=== PATIENT | male | born 2005 | race Caucasian/White ===

== ENCOUNTER 2025-05-02 04:19 | Emergency (ER) | payer OTHER, SELFPAY ==
--- OUTSIDE RECORDS SUMMARY | 2025-04-29 16:15 | XMS_ITS | Encounter Summary ---
Author Organization [facility] Address [address] [place] [address] Care Team Providers Care Chief Substation Operator Name Role Phone Luz Maddox MD Primary Care Provider [phone] Encounter Details Date Type Department Care Team (Latest Contact Info) Description 04/29/2025 4:15 PM EDT Pre-Admission Testing [facility] [address] [facility] 3rd [place] [address] Mass of soft tissue (Primary Dx); Pre-op evaluation Anesthesia Record Procedure Summary Procedure Name Responsible Anesthesiologist Anesthesia Start Time Anesthesia Stop Time EXCISION, LESION, SOFT TISSUE, SUBFASCIAL, 5 CM OR GREATER LOWER BACK (Back) Events No events on file. Meds * Agents No agents on file. * Blood No blood administrations on file. Lines, Drains, and Airways No LDAs on file. documented in this encounter Social History Tobacco Use Types Packs/Day Years Used Date Smoking Tobacco: Never Smokeless Tobacco: Never Alcohol Use Standard Drinks/Week Comments Yes 0 (1 standard drink = 0.6 oz pur e alcohol) 2 weekly Hunger Vital Sign Answer Date Recorded Within the past 12 months, y ou worried that your food would run out before you got the money to buy more. Never true 04/09/20 25 Within the past 12 months, t he food you bought just didn't last and you didn't have money to get more. Never true 04/09/2025 [facility] Utilities Answer Date Recorded In the past 12 months has th e electric, gas, oil, or water company threatened to shut off services in your home? No 04/09/2025 Transportation Answer Date Recorded In the past 12 months, has l ack of reliable transportation kept you from medical appointments, meetings, work or from getting things needed for daily living? No 04/09/2025 Housing Answer Date Recorded Housing Risk Low 2 04/09/2025 Housing Risk Medium Not on file 04/09/2025 Housing Risk High Not on file 04/09/2025 What is your living situation today? LSSTEADY 04/09/2025 Sex and Gender Information Value Date Recorded Sex Assigned at Male 06/02/2024 9:04 AM EDT Legal Sex Male 7:16 AM EDT Gender Identity Not on file Sexual Orientation Not on file documented as of this encounter H&P Notes * Pepper Lemon NP - 04/29/2025 3:56 PM EDT PREOPERATIVE HISTORY AND PHYSICAL THIS DOCUMENT SERVES THE TELEPHONE ENCOUNTER/HISTORY PORTION OF THE PRE-OP HISTORY AND PHYSICAL FOR THIS PATIENTS UPCOMING SURGERY NOTED BELOW. Pre-Surgical Telephone History Physical Exam to be done day of surgery. (please see completed physical exam at the bottom of this note) Pre-operative history is obtained by chart review of [facility] medical record and information received from patient. Date: 04/29/25 Patient was identified using two identifiers (name and ). Procedure Summary Date: 05/11/25 [facility] Anesthesia Start: Anesthesia Stop: Procedure: EXCISION, LESION, SOFT TISSUE, SUBFASCIAL, 5 CM OR GREATER LOWER BACK (Back) Diagnosis: Mass of soft tissue (Mass of soft tissue [M79.89]) Surgeons: Froilan Richards MD Responsible Provider: Anesthesia Type: Not recorded ASA Status: Not recorded Procedure Summary Date: 05/11/2025 Room/Location: [facility] [address] [place] [address] OR Procedure(s): EXCISION, LESION, SOFT TISSUE, SUBFASCIAL, 5 CM OR GREATER LOWER BACK Pre-Op Diagnosis Codes: * Mass of soft tissue [M79.89] Surgeon(s): Froilan Richards MD Anesthesia Type from Case: Moderate Sedation Chief Complaint: I have a mass in my lower back HISTORY OF PRESENT ILLNESS: 19 y.o.male with history of ADHD, and mass of soft tissue. Patient has been living with a lump on his lower back for approximately 2 years, which has progressively increased in size and become more painful over time. 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 Now patient pending OR for excision, lesion, soft tissue, subfascial, 5 cm or greater lower back Arnoldo is contacted today for pre anesthesia evaluation prior to EXCISION, LESION, SOFT TISSUE, SUBFASCIAL, 5 CM OR GREATER LOWER BACK (Back) as above with Dr. Richards on 05/11/2025 PAST MEDICAL HISTORY: Past Medical History: Diagnosis Date ADHD PAST SURGICAL HISTORY: Past Surgical History: Procedure Laterality Date PROCEDURE - HISTORIC N/A History of Elective Circumcision WISDOM TOOTH EXTRACTION MEDICATIONS: Current Medications as of 04/29/2025 acetaminophen (TYLENOL) 325 mg tablet Take 2 tablets (650 mg total) by mouth every 6 hours as needed for pain. melatonin tablet Take 10 mg by mouth nightly. As needed methylphenidate CD (METADATE CD) 20 mg CR capsule Take 1 capsule (20 mg total) by mouth every morning. Patient not taking: Reported on 04/22/2025 mupirocin-lidocaine 2-2 % ointment 1 mL by Topical (top) route 3 times a day. Patient not taking: Reported on 04/22/2025 naloxone HCl (NARCAN) 4 mg/actuation nasal spray Instill the contents of 1 unit intranasally for suspected opioid overdose. Repeat after 3 minutes if no or minimal response. Patient not taking: Reported on 04/22/2025 traMADoL (ULTRAM) 50 mg tablet Take 1 tablet (50 mg total) by mouth every 6 hours as needed for pain. Patient not taking: Reported on 04/22/2025 Aspirin: No Other antiplatelet: No NSAID: No Anticoagulants: No ALLERGIES: No Known Allergies SOCIAL HISTORY: Social History Tobacco Use Smoking status: Never Smokeless tobacco: Never Substance Use Topics Alcohol use: Yes Comment: 2 weekly FAMILY HISTORY: Family History Problem Relation Age of Onset No Known Problems Mother No Known Problems Father Other Mother's Sister Family History of diabetes mellitus Other Other Family History of hypertension REVIEW OF SYSTEMS: Review of Systems Constitutional: Negative for chills, fatigue and fever. HENT: Negative for hearing loss, no hearing aids, dental problem, no dentures, sore throat and trouble swallowing. Eyes: Positive for Glasses/Contacts (glasses). Negative for blurred vision, no cataract, double vision, flashes and floaters. Respiratory: Negative for apnea, chest tightness, cough, shortness of breath and wheezing. Cardiovascular: Negative for chest pain, chest pressure, chest tightness, leg swelling, palpitations, rapid heart beat and skipped heart beat. Gastrointestinal: Negative for abdominal pain, melena, blood in stool, constipation, diarrhea, heartburn, nausea and vomiting. Genitourinary: Negative for dysuria and hematuria. Musculoskeletal: Negative for arthralgias, back pain, joint swelling, knee pain, myalgias, neck pain and neck stiffness. Skin: Negative for rash and wound. Mass on lower back Neurological: Negative for dizziness, headaches, light-headedness, numbness, seizures, syncope, tingling, tremors and weakness. Hematological: Negative for bleeding disorder and blood clots. Does not bruise/bleed easily. VITALS: To be done day of surgery. PHYSICAL EXAM: To be done day of surgery. LAB: Pertinent lab results include Lab Results Component Value Date WBC 8.1 11/07/2020 HGB 15.7 11/07/2020 HCT 45.9 11/07/2020 MCV 82.7 11/07/2020 PLT 243 11/07/2020 Lab Results Component Value Date GLUCOSE 100 (H) 11/07/2020 CALCIUM 9.8 11/07/2020 NA 136 11/07/2020 K 3.7 11/07/2020 CO2 28 11/07/2020 CL 100 11/07/2020 BUN 12 11/07/2020 CREATININE 0.88 11/07/2020 ANESTHESIA CONSIDERATIONS: Personal problem with anesthesia: No Family history of anesthesia problems: No Dental Issues: No Hardware/Implant: No Activity: able to climb flight of stairs w/out difficulty, chest pain or shortness of breath STOPBAN Blood Products: patient has no muslim or cultural beliefs that would prevent blood/blood producttransfusion VISIT DIAGNOSIS: 1. Mass of soft tissue 2. Pre-op evaluation Assessment & Plan: Assessment/Plan: 19 y.o. male who was interviewed via telephone today prior to Procedure(s): EXCISION, LESION, SOFT TISSUE, SUBFASCIAL, 5 CM OR GREATER LOWER BACK on 05/11/2025. 1. Arnoldo Cortes was phone screened for the above procedure. This form serves as the history portion of the patient's H&P. The patient will be evaluated by anesthesia and their surgeon on the day ofsurgery. Vital signs will be obtained in the [facility] on the day of surgery. A physical exam will be obtained on the day of surgery by a pre-testing STUNT WOMAN/PA or the surgeon/designee. The physical exam portion of the H&P will be documented as an addendum to this note, or less commonly as a separate brief progress note. 2. Pre-Op Labs - Not indicated based on surgical procedure or patient's medical history. 3. EKG - Not indicated based on surgical procedure or patient's medical history. 4. DOS Labs - N/A 5. Patient denies any new or concerning symptoms and has been feeling in their usual state of health. I did advised patient to contact their surgeons office if they developed any new or concerning symptoms. They verbalized understanding The patient verbalizes understanding of pre operative instructions I have reviewed with them today.Sent to patient VIA: [employer] with patient agreement MIKE Thomas- Pre-Anesthesia Center [facility] This note was created using [employer] voice-recognition software and may contain inadvertent errors. Please excuse word selection errors, misspellings or grammatical errors related to the use of voice recognition software. documented in this encounter Miscellaneous Notes * Pre-Procedure Instructions - Pepper Lemon NP - 04/29/2025 4:34 PM EDT PSE PRE-OPERATIVE/PRE-PROCEDURAL PATIENT INSTRUCTIONS DIRECTIONS [address] [address] ARRIVAL TIME: You will be called the business day before surgery after 1:30 pm to receive your arrival time. Please check in at Central [facility] (ground floor) Questions regarding your surgery, please call Surgical Day Care at [phone]: Option 2 to speak with your care team Saturday through Saturday between 6:30 am and 6:00 pm. Procedure Summary Date: 05/11/2025 Room/Location: [facility] OR Surgeon(s): Froilan Richards MD [address] [address] ARRIVAL TIME: You will receive a call from the staff on the day before your procedure after 1:30 pm. Questions: please call Surgical Day Care at [phone], Option 2, Saturday through Saturday between 6:30 am and 6:00 pm. Enter through the main entrance of the hospital and report to [facility] on the Ground Floor, where you will be registered and directed to the appropriate area for your procedure. FASTING: NOTE: These fasting instructions are very important. Your procedure may be cancelled if you do not fast as outlined below. Do not eat any food after midnight. (Example: If procedure is on Sep 20, no food after 12:00 am onSep 20). You may drink only the following clear liquids until two (2) hours before arrival: water,apple juice, black coffee, or black tea. No milk, cream, candy, mints, or lozenges after midnight. NOTHING BY MOUTH for two (2) hours before arrival. Pre-Procedure Medication Instructions: acetaminophen (TYLENOL) 325 mg tablet Take morning of procedure if needed melatonin tablet Take night before procedure Do NOT take AM of your procedure methylphenidate CD (METADATE CD) 20 mg CR capsule Do not take on the morning of procedure Do NOT take 7 days prior to your procedure Stop taking all Non-Steroidal Anti-Inflammatory Drugs (NSAIDs) for at least 7 days prior to surgery. This includes but is not limited to: Motrin, Aleve, Naproxyn, Celebrex, Advil, Ibuprofen and Fish Oil. Resume all held medications after the procedure unless directed otherwise by your physician. Additional Instructions: Shower with antibacterial soap (such as Dial) the night before surgery and again the morning of surgery. Do not wear powder, deodorant, fragrance, creams, or lotions. Remove fingernail latvian or artificial nails. Do not wear makeup or contact lenses on the day of your procedure. Remove all body piercings and jewelry prior to arrival. Failure to do so could result in cancellation of your procedure. Wear comfortable, loose-fitting clothing. Wear sturdy shoes such as sneakers. Do not wear flip flops. Patients with facial hair are asked to shave prior to arrival for surgery unless they have muslim or cultural reasons not to. Do not bring any valuables or a purse/wallet with you to the hospital. Do not drink alcohol for 24 hours prior to surgery. Do not smoke or 'vape' tobacco/nicotine products 24-48 hours prior to procedure. Do not smoke/consume marijuana/THC for 72 hours before the procedure. It is OK to continue to take Tylenol right up to the day of your procedure. Do not take NSAIDs (Ibuprofen, Motrin, Aleve, Naproxen, Diclofenac etc.) for 7 days before surgery as these medications can thin the blood. Do not take vitamins or supplements 7 days prior to your procedure (unless otherwise noted above). Please notify your surgeon/physician if you develop fever, cough, sore throat, diarrhea, vomiting, chest pain, or any changes to your health prior to your procedure. Please contact your surgeon with any questions about your procedure or recovery, or if you need to cancel or reschedule your procedure. Please bring a photo ID and your insurance card the day of surgery. If applicable: Patients on insulin/diabetes medications: It is very important to take these medications specifically as directed above. If applicable, please check your blood sugar 2 hours prior to arrival. You maydrink apple juice if your blood sugar is low. We will check and manage your blood sugar upon your arrival. Sleep apnea patients: Please bring your CPAP/BiPAP with you to the hospital. We may need to use it in the Recovery Room. FOR AMBULATORY SURGERY PATIENTS (being discharged on the day of surgery): You must have a responsible adult to drive you home AND stay with you for 24 hours A taxi ride home is acceptable if you are accompanied by a responsible adult. A bus ride home is not permitted. [address] [address] ARRIVAL TIME: You will be called the day before surgery after 1:30 pm to receive your arrival time. Please check in at Central [facility] (ground floor) Questions regarding your surgery, please call Surgical Day Care at [phone]: Option 2 to speak with your care team Saturday through Saturday between 6:30 am and 6:00 pm. documented in this encounter Plan of Treatment Upcoming Encounters Date Type Department Care Team (Late st Contact Info) Description 05/11/2025 1:25 PM EDT Hospital Encounter [facility] Day Surgery [address] [place] [phone] Froilan Richards MD [address] [place] [phone] 05/11/2025 1:25 PM EDT Anesthesia Event [facility] Surgery [address] [place] [phone] Pepper Lemon NP [address] [facility] [place] [address] 05/11/2025 1:25 PM EDT - 05/11/2025 2:45 PM EDT Surgery [facility] Surgery [address] [place] [phone] Froilan Richards MD [address] [place] [id number] EXCISION, LESION, SOFT TISSUE, SUBFASCIAL, 5 CM OR GREATER LOWER BACK [52019 (CPT )] 05/27/2025 9:45 AM EDT Office Visit [facility] [address] [place] [phone] Community Health Education Coordinator: Froilan Eduardo MD [address] [place] [phone] 06/07/2025 10:00 AM EDT Office Visit [address] [place] [address] Luz Maddox MD [address] [place] [address] 09/20/2025 10:15 AM EST Follow-Up [facility] [address] [place] [phone] Yady Hernandez P, OD [address] [place] [address] Scheduled Procedures Name Priority Associated Diagnoses Date/Ti me EXCISION, LESION, SOFT TISSU E, SUBFASCIAL, 5 CM OR GREATER Mass of soft tissue 05/11/2025 1:25 PM EDT documented as of this encounter Goals Goal Patient Goal Type Associated Problems Recent Progress Patient-Stated? Author Autogenera kameron Goal Care Plan Autogenerated Problem No Augustina Orozco documented as of this encounter Visit Diagnoses Diagnosis Mass of soft tissue- Primary Pre-op evaluation Mass of soft tissue documented in this encounter Additional Health Concerns Active Problems Noted Date Diagnosed Date Autogenerated Problem 04/27/2025 documented as of this encounter Care Teams Chief Substation Operator Relationship Specialty Start Date End Date Luz Maddox MD [address] [place] [id number] PCP - General 03/07/17 documented as of this encounter
[2025-05-02 04:38] VITALS: BP 130/67; PULSE 60; RESP 16; TEMP 36.4; O2SAT 99; BMI 25.8
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
--- OUTSIDE RECORDS SUMMARY | 2025-05-02 04:42 | XMS_ITS | Clinical Summary ---
Author Organization [facility] Address [address] [facility] [email or web address] [address] Care Team Providers Care Truck Body Repairer Name Role Phone Unavailable Primary Care Provider Unavailabl e Social History Tobacco Use Types Packs/Day Years Used Date Smoking Tobacco: Never Assessed Sex and Gender Information Value Date Recorded Sex Assigned at Not on file Legal Sex Male 1:13 PM EST Gender Identity Not on file Sexual Orientation Not on file Plan of Treatment Health Maintenance Due Date Last Done Comments Depression: Screening Annual ly using PHQ-2/9 in Adults 18 yrs or above (or HM Modifier)([facility]) 11/04/2023 Hepatitis C Virus Infection in Adolescents and Adults: Screening (or Modifier) ([facility]) 11/04/2023 SDOH Screening Reminder: Annually for all adults ([facility]) 11/04/2023 Tobacco Smoking Cessation: i n Adults excluding Women: Behavioral and Pharmacotherapy Interventions ([facility]) 11/04/2023 Flu Vaccination: Yearly for ages 18mos through 64 years (or Modifier)([facility]) 03/19/2025 07/30/2020 DTaP/Tdap/Td Vaccines ([facility]) (3 - Td or Tdap) 01/18/2027 01/18/2017, 06/21/2011 Zoster/Shingles Vaccine Seri es Screening: Adults aged 18+ yrs (or HM Modifiers)([facility]) (1 of 2) 11/04/2055 08/23/2011, 06/21/2011 Pneumococcal Vaccination Screening: Pts 0-19 & 19-49 yrs of age ([facility]) Aged Out No longer eligible based on patient's age to complete this topic Medical Devices Not on file
--- OUTSIDE RECORDS SUMMARY | 2025-05-02 04:42 | XMS_ITS | Encounter Summary ---
Author Organization [facility] Address [address] [place] [address] Care Team Providers Care Staff Editor Name Role Phone Luz Maddox MD Primary Care Provider [phone] Encounter Details Date Type Department Care Team (Late st Contact Info) Description 04/10/2025 myChart Message [facility] Medicine [address] [facility] [address] [place] [address] Luz Maddox MD [address] [place] [address] Labs Social History Tobacco Use Types Packs/Day Years Used Date Smoking Tobacco: Never Smokeless Tobacco: Never Alcohol Use Standard Drinks/Week Comments No 0 (1 standard drink = 0.6 oz pur e alcohol) Hunger Vital Sign Answer Date Recorded Within the past 12 months, y ou worried that your food would run out before you got the money to buy more. Never true 04/09/20 25 Within the past 12 months, t he food you bought just didn't last and you didn't have money to get more. Never true 04/09/2025 [facility] Utilities Answer Date Recorded In the [...] on file documented as of this encounter Plan of Treatment Upcoming Encounters Date Type Department Care Team (Late st Contact Info) Description 05/11/2025 1:25 PM EDT Hospital Encounter [facility] Surgery [address] [place] [address] Froilan Richards MD [address] [place] [address] 05/11/2025 1:25 PM EDT Anesthesia Event [facility] Surgery [address] [place] [address] Pepper Lemon, LIZ [address] [facility] [place] [address] 05/11/2025 1:25 PM EDT - 05/11/2025 2:45 PM EDT Surgery [facility] Surgery [address] [place] [address] Froilan Richards MD [address] [place] [address] EXCISION, LESION, SOFT TISSUE, SUBFASCIAL, 5 CM OR GREATER LOWER BACK [02514 (CPT )] 05/27/2025 9:45 AM EDT Office Visit [facility] [address] [place] [address] Care Director Rn: Froilan Eduardo MD [address] [place] [address] 06/07/2025 10:00 AM EDT Office Visit [address] [address] Luz Maddox MD [address] [place] [address] 09/20/2025 10:15 AM EST Follow-Up [facility] [address] [place] [address] Yady Hernandez P, OD [address] [place] [address] Scheduled Procedures Name Priority Associated Diagnoses Date/Ti me EXCISION, LESION, SOFT TISSU E, SUBFASCIAL, 5 CM OR GREATER Mass of soft tissue 05/11/2025 1:25 PM EDT documented as of this encounter Visit Diagnoses Not on filedocumented in this encounter Care Teams Staff Editor Relationship Specialty Start Date End Date Luz Maddox MD [address] [place] [address] PCP - General 03/07/17 documented as of this encounter
--- NOTE | 2025-05-02 05:00 | ED.EYEPROB ---
HPI - Eye Problem General Chief complaint: Eye Problems Stated complaint: burst vessel in eye Time Seen by Provider: 05/02/25 04:55 Source: patient and family ( friend) Mode of arrival: ambulatory Limitations: no limitations History of Present Illness ED Provider: DR. Lewis HPI Narrative: 19-year-old male otherwise healthy came in for evaluation of right subconjunctival hemorrhage in the right eye after he was wrist wrestling patient was straining then started to notice right subconjunctival hemorrhage, no blurry vision, no headache, no photophobia. Do not use contact lens or wear eyeglasses. Related Data Allergies Allergy/AdvReac Type Severity Reaction Status Date / Time No Known Allergies Allergy Verified 05/02/25 04:42 Review of Systems Review of Systems: all other systems are reviewed and are negative Constitutional: Reports as per HPI and Reports no additional constitutional complaints Eyes: Reports as per HPI and Reports no additional eye complaints Reports system reviewed and no additional complaints, except as documented Cardiovascular: Reports as per HPI and Reports no additional cardiovascular complaints Respiratory: Reports as per HPI and Reports no additional respiratory complaints Gastrointestinal: Reports as per HPI and Reports no additional gastrointestinal complaints Genitourinary: Reports no additional female genitourinary complaints Musculoskeletal: Reports no additional musculoskeletal complaints Skin/Breast: Reports system reviewed and no additional complaints, except as docu Psychiatric: Reports no additional psychiatric complaints Endocrine: Reports no additional endocrine complaints Hematologic/Lymphatic: Reports no additional hematologic/lymphatic complaints Allergic/Immunologic: Reports no additional allergic/immunologic complaints Reports system reviewed and no additional complaints, except as documented and Reports Abnormal speech present [facility] Social History Social History Advance Directives: No Do you have a plan to hurt others: No Plan Physical Exam Vital Signs: Vital Signs: Last Vital Signs Temp 97.6 F 05/02/25 04:38 Pulse 60 05/02/25 04:38 Resp 16 05/02/25 04:38 BP 130/67 05/02/25 04:38 Pulse Ox 99 05/02/25 04:38 O2 Del Method Room Air 05/02/25 04:38 BMI result Body Mass Index 25.8 Vital signs have been reviewed and appear to be correct. Blood pressure elevated. Heart rate normal. Respiratory rate normal. Temperature normal. Oxygen saturation normal. Appearance: Alert. Oriented X3. No acute distress. Head: Normal external exam. Normocephalic. Atraumatic. No Ayoub signs noted. No raccoon eyes noted Eyes: VA right 20/30, left 20/40. General: appearance normal, both eyes and all related structures Visual Lozano: normal visual lozano by confrontation Alignment and Position: alignment normal and position normal Periorbital: periorbital findings normal Eyelids: Yes eyelids normal Conjunctivae: right subconjunctival Hemorrhage of the temporal side of the right eye. Sclerae: sclerae normal Corneas: corneas normal Pupils: Equal, round and reactive pupils present and Pupil accommodation reflex normal EOM: EOM abnormal (Limited abduction of right eye) and No Nystagmus present Direct Ophthalmoscopy: normal light reflex, no photophobia, no papilledema and fundi normal bilaterally ENT: TM's Normal. Pharynx normal. Uvula midline. Moist mucous membranes. No trismus noted. No drooling noted. No muffled voice noted. Neck: Normal inspection. Neck supple. FROM. No adenopathy. Thyroid Normal. No meningeal signs. No neck mass noted. CVS: Normal heart rate and rhythm. Heart sound normal. No murmurs noted. Pulses normal throughout. Respiratory: No respiratory distress. Painless inspiration. Breath sounds normal. No wheezes/rales/rhonchi noted. Chest nontender. No accessory muscle usage noted or decreased air movement noted. Abdomen: Soft and nontender. Bowel sounds normal in all 4 quadrants. No distention noted. No organomegaly noted. No visible injury noted. Back: No CVA tenderness. Full range of motion noted. Skin: Skin warm and dry. Normal skin color. Normal skin turgor. No rashes/lesions/lacerations noted. Extremities: No lower extremity edema. Extremities exhibit normal range of motion. Extremities nontender. Neuro: Mental status: Normal attention, orientation, memory, and affect. Cranial nerves: Pupils are equal, round and reactive to light, EOMI, visual lozano are fall, face is symmetric, facial sensations are normal. Motor examination normal muscle tone, strength to 4 extremities. DTR are +2, planter's are flexor. Sensory exam; normal coordination, no ataxia, gait stable. Cerebellar exam: [id number] and [id number] is normal. Extrapyramidal system: No tremors, no rigidity with normal facial expressions. Pronator drift not present Course Reevaluation(s) Reevaluation #1: Benign right subconjunctival hemorrhage, otherwise normal neuro exam and normal eye exam. No medical intervention is needed at this point patient was reassured. Time: 05:05 Medical Decision Making Differential Diagnosis Differential Diagnoses: The differential diagnosis associated with the presentation includes ( Subconjunctival hemorrhage, eye foreign body, normal neuro exam.) Admission/Observation Consideration of admission/observation: Escalation of care including admission/observation considered Discharge Plan Discharge Clinical Impression: Subconjunctival hemorrhage Qualifiers: Laterality: right Qualified Code(s): H11.31 - Conjunctival hemorrhage, right eye Patient Disposition: Home, Self-Care Instructions: Ecchymosis (ED) Referrals: Sissy Maddox DMD [Primary Care Provider, Dentistry] Print Language: Kazakh
[2025-05-02 05:17] VITALS: BP 130/67; PULSE 60; RESP 16; TEMP 36.4; O2SAT 99
== END 2025-05-02 05:18 | disposition home or self-care (01) ==
PROVIDERS: Emergency Provider Emergency Medicine; PCP Dentist
DX: H11.31 Conjunctival hemorrhage, right eye (principal)
CPT/HCPCS: 99282